=== PATIENT | female | born 1970 | race Caucasian/White ===

== ENCOUNTER → 2021-06-04 | Outpatient (CLI) | payer OTHER ==
[2021-06-04 14:09] LABS: ABSOLUTE NEUTROPHILS 6.7 thou/uL (1.4-8.2); BASOPHILS 0.5 % (0.0-2.0); EOSINOPHILS 2.5 % (0.0-3.0); HEMATOCRIT 47.8 % (37.0-47.0); MCH 32.4 pg (26.0-34.0); MCHC 33.6 g/dL (28.0-37.0); MCV 96.3 fL (80.0-100.0); MONOCYTES 6.8 % (1.0-8.0); PLATELET COUNT 214 thou/uL (150-400); POLYS 61.2 % (36.0-66.0); RBC 4.96 mil/uL (4.20-5.00); RDW 13.6 % (10.5-14.5)
[2021-06-04 14:26] LABS: ALBUMIN 3.8 g/dL (3.4-5.0); ANION GAP 9 mmol/L (7-16); BUN 13 mg/dL (7-18); CALCIUM 9.3 mg/dL (8.5-10.1); CHLORIDE 96 mmol/L (98-107); CHOLESTEROL 200 mg/dL (<200); CO2 31 mmol/L (21-32); CREATININE 0.8 mg/dL (0.6-1.0); GLUCOSE 182 mg/dL (74-106); HDL CHOLESTEROL 47 mg/dL (>40); LDL CHOLESTEROL 96 mg/dL (<100); POTASSIUM 3.8 mmol/L (3.5-5.1); SGOT 47 U/L (15-37); SGPT 53 U/L (30-65); SODIUM 136 mmol/L (136-145); TC:HDL 4.3 Ratio (Not establshd); TOTAL BILIRUBIN 0.4 mg/dL (0.2-1.0); TOTAL PROTEIN 8.3 g/dL (6.4-8.2); TRIGLYCERIDE 288 mg/dL (<150); VLDL 58 mg/dL (<40)
[2021-06-05 04:06] LABS: GLYCOHEMOGLOBIN (HGB A1C) 8.6 % (4.8-5.6)
== END ==
LOC: LAB 13:17
PROVIDERS: ATTEND Family Medicine
DX: E11.9 Type 2 diabetes mellitus without complications (principal); E78.5 Hyperlipidemia, unspecified; E55.9 Vitamin D deficiency, unspecified; Z79.4 Long term (current) use of insulin

== ENCOUNTER → 2021-10-05 | Outpatient (CLI) | payer OTHER ==
--- NOTE | 2021-10-05 12:17 | 2DMMODE ---
[facility] [place] [address] 2 D/M-MODE ECHOCARDIOGRAM Name: YARIEL GAINES [id number] Ad[facility]: 10/05/21 Attend Phys: Tutu Nava MD Discharge: Date of : 72 Report #: [id number] THIS REPORT FOR: cc: Annalisa Blackwell MD, Nora P. MD Santiago, Patrick MD [facility] ~ APPROVED REPORT Study performed: 10/05/2021 10:19:00 EXAM: Comprehensive 2D, Doppler, and color-flow Echocardiogram Patient Location: Out-Patient Status: routine BSA: 2.17 HR: 86 bpm Rhythm: NSR Other Information Study Quality: Good Technically limited study due to body habitus. Indications Headaches 2D Dimensions IVSd: 7.82 (7-11mm) LVOT Diam: 19.81 (18-24mm) LVDd: 34.81 mm PWd: 8.27 (7-11mm) Ascending Ao: 33.82 (22-36mm) LVDs: 26.18 (25-40mm) Left Atrium: 34.37 (27-40mm) Aortic Root: 31.98 mm LV Single Plane 4CH: 55.31 % LV Single Plane 2CH: 54.53 % Volumes Left Atrial Volume (Systole) Single Plane 4CH: 23.39 mL Single Plane 2CH: 12.59 mL Biplane LA Volume: 23.00 mL LA ESV Index: 10.00 mL/m2 Aortic Valve AoV Peak Raúl.: 1.24 m/s [facility] [address] [address] 2 D/M-MODE ECHOCARDIOGRAM Name: YARIEL GAINES Room #: REG CL [facility]#: [id number] Admission: 10/05/21 Attend Phys: Tutu Nava, Discharge: Date of : 72 Report #: [id number] AO Peak Gr.: 7.96 mmHg LVOT Max P.72 mmHg LVOT Max V: 0.82 m/s SABIHA Vmax: 2.04 cm2 Mitral Valve E/A Ratio: 0.8 MV Decel. Time: 4658.28 ms MV E Max Raúl.: 0.44 m/s MV A Raúl.: 0.54 m/s MV PHT: 1350.90 ms IVRT: 86.51 ms Pulmonary Valve PV Peak Raúl.: 0.92 m/s PV Peak Gr.: 3.41 mmHg Pulmonary Vein P Vein S: 0.52 m/s P Vein A: 0.24 m/s P Vein D: 0.33 m/s P Vein S/D Ratio: 1.58 Left Ventricle The left ventricle is normal size. There is normal LV segmental wall motion. There is normal left ventricular wall thickness. Left ventricular systolic function is normal. The left ventricular ejection fraction is within the normal range. LVEF is 50-55%. The left ventricular diastolic function is normal. Right Ventricle The right ventricle is normal size. The right ventricular systolic function is normal. Atria The left atrium size is normal. Injection of bubbles documented no interatrial shunt. The right atrium size is normal. Aortic Valve The aortic valve is normal in structure. No aortic regurgitation is present. There is no aortic valvular stenosis. Mitral Valve The mitral valve is normal in structure. There is no mitral valve regurgitation noted. No evidence of mitral valve stenosis. Tricuspid Valve The tricuspid valve is normal in structure. There is no tricuspid valve regurgitation noted. Unable to assess PA pressure. [facility] [address] [place] [address] 2 D/M-MODE ECHOCARDIOGRAM Name: MANDA WHITINGYARIEL KHAN Room #: REG [facility] [id number] Admission: 10/05/21 Attend Phys: Tutu Nava, Discharge: Date of : 72 Report #: [id number] Pulmonic Valve The pulmonary valve is normal in structure. There is no pulmonic valvular regurgitation. Great Vessels The aortic root is normal in size. IVC is normal in size and collapses >50% with inspiration. Pericardium There is no pericardial effusion. There is no pleural effusion. <Conclusion> Normal left ventricle size/wall thickness central ejection fraction 50-55% Grade 1 diastolic dysfunction Normal right ventricular size/function Normal atrial size Normal aortic/mitral valve structure and function No tricuspid valve insufficiency No pericardial effusion Normal aortic root size No evidence of ASD/VSD by bubble study. <ELECTRONICALLY SIGNED> By: Inderjit Wright MD, FACC 10/05/21 1216 121 121 Inderjit Wright MD, FACC /INF
[2021-10-06 09:07] LABS: ANTI-DNA SCREEN <1 IU/mL (0-9); ANTI-RNP <0.2 AI (0.0-0.9)
== END ==
LOC: CV 08:33
PROVIDERS: ATTEND Psychiatry & Neurology Neuromuscular Medicine
DX: G43.411 Hemiplegic migraine, intractable, with status migrainosus (principal); E78.5 Hyperlipidemia, unspecified; M79.7 Fibromyalgia; F32.A Depression, unspecified; F41.9 Anxiety disorder, unspecified